=== PATIENT | female | born 1975 | race Caucasian/White ===

== ENCOUNTER 2017-10-30 05:38 | Day surgery (SDC) | payer OTHER ==
[~2017-10-30] VITALS: Ht 157.5 cm; Wt 79.8 kg
[~2017-10-30 05:38] MED LIST: BENTYL10 MG PO; BUSPAR15 MG; ENDOCET 5-3251 EACH PO; GLYBURIDE; KLONOPIN0.5 M1 PO; KLONOPIN1 MG PO; MULTIVITAMIN1 EAC2 PO; OMEPRAZOLE40 M1 PO; PAXIL20 MG PO; PAXIL40 MG PO; PERCOCET 5/31 TABLET PO; PROMETHAZINE HC25 M1; PROMETHAZINE HC25 M1 PO; SERTRALINE HCL50 MG; VICODIN 5-3001 EACH PO; VITAMIN B12 IM; ZANTAC150 MG PO; ZOFRAN ODT4 MG PO; ZOFRAN4 MG PO; ZOFRAN8 MG PO
[2017-10-30 05:58] VITALS: BP 110/73
[2017-10-30 10:15] VITALS: BP 106/58
[2017-10-30 11:09] VITALS: BP 102/53
== END 2017-10-30 11:05 | disposition home or self-care (01) ==
LOC: SDC 05:38
PROC: 0LM80ZZ Reattachment of Left Hand Tendon, Open Approach (ICD-10-PCS; principal; 2017-10-30)
DX: S66.323A Laceration of extensor muscle, fascia and tendon of left middle finger at wrist and hand level, initial encounter (principal); E11.9 Type 2 diabetes mellitus without complications; F32.9 Major depressive disorder, single episode, unspecified; Z98.84 Bariatric surgery status; Z82.49 Family history of ischemic heart disease and other diseases of the circulatory system; Z83.3 Family history of diabetes mellitus; Z88.2 Allergy status to sulfonamides; W26.0XXA Contact with knife, initial encounter
CPT/HCPCS: 93005; J0131; J0690; J1100; J1170; J2175; J2250; J2405; J2765; J3010; S0020

== ENCOUNTER 2018-04-02 08:09 | Day surgery (SDC) | payer OTHER ==
[~2018-04-02] VITALS: Ht 157.5 cm; Wt 81.1 kg
[~2018-04-02 08:09] MED LIST changes: +MOTRIN IB200 MG PO
[2018-04-02 08:46] VITALS: BP 102/68
[2018-04-02 12:30] VITALS: BP 104/62
[2018-04-02 13:18] VITALS: BP 110/65
== END 2018-04-02 13:25 | disposition home or self-care (01) ==
LOC: SDC 08:09
PROC: 01N50ZZ Release Median Nerve, Open Approach (ICD-10-PCS; principal; 2018-04-02)
DX: G56.02 Carpal tunnel syndrome, left upper limb (principal); Z98.84 Bariatric surgery status; Z90.49 Acquired absence of other specified parts of digestive tract; Z90.710 Acquired absence of both cervix and uterus; Z86.39 Personal history of other endocrine, nutritional and metabolic disease; Z82.49 Family history of ischemic heart disease and other diseases of the circulatory system; Z83.3 Family history of diabetes mellitus
CPT/HCPCS: 93005; J1100; J1885; J2250; J2405; J3010; S0020